=== PATIENT | female | born 1985 | race Asian ===

== ENCOUNTER → 2022-04-02 13:55 | Outpatient (CLI) | payer OTHER, SELFPAY ==
[2022-04-02 14:41] LABS: COVID19 -Nasal RAPID Negative (Negative)
== END ==
PROVIDERS: Visit Provider Registered Nurse
DX: Z20.822 Contact with and (suspected) exposure to COVID-19 (principal)
CPT/HCPCS: 87635

== ENCOUNTER 2022-11-17 20:53 | Emergency (ER) | payer OTHER, SELFPAY ==
[2022-11-17 21:19] VITALS: BP 153/77; PULSE 100; RESP 18; TEMP 37.8; O2SAT 96; BMI 38.4
[2022-11-17 22:35] LABS: Adenovirus Not Detected (Not Detect); B. parapertussis Not Detected (Not Detecte); Bordetella pertussis Not Detected (Not Detecte); Chlamydophila pneumoniae Not Detected (Not Detect); Coronavirus 229E Not Detected (Not Detect); Coronavirus HKU1 Not Detected (Not Detect); Coronavirus NL 63 Not Detected (Not Detect); Coronavirus OC43 Not Detected (Not Detect); Human Metapneumovirus Detected (Not Detect); Human Rhinovirus/Enterovirus Not Detected (Not Detect); Influenza A Not Detected (Not Detect); Influenza B Not Detected (Not Detect); Mycoplasma pneumoniae Not Detected (Not Detect); Parainfluenza Virus 1 Not Detected (Not Detect); Parainfluenza Virus 2 Not Detected (Not Detect); Parainfluenza Virus 3 Not Detected (Not Detect); Parainfluenza Virus 4 Not Detected (Not Detect); Respiratory Syncytial Virus Not Detected (Not Detect); SARS- CoV-2 Not Detected (Not Detecte)
--- NOTE | 2022-11-17 23:21 | ED_ITS ---
HPI - General Adult General Chief complaint: Fever Stated complaint: fever for 2 days Time Seen by Provider: 11/17/22 23:12 Source: patient Mode of arrival: Ambulatory History of Present Illness HPI narrative: Patient is 37-year-old female here for evaluation of a couple days of a fever. She states she also had diarrhea today. No abdominal pain. No urinary symptoms. No skin rashes. Has been taking Tylenol at home. No sinus congest ion or sore throat. Related Data Allergies Allergy/AdvReac Type Severity Reaction Status Date / Time amoxicillin AdvReac Mild Verified 04/02/22 13:55 cephalexin [From Keflex] AdvReac Mild Verified 04/02/22 13:55 Review of Systems Constitutional Constitutional: Reports system reviewed and no additional complaints, except as documented ENT Ears, Nose, Mouth, and Throat: Reports system reviewed and no additional complaints, except as documented Cardiovascular Cardiovascular: Reports system reviewed and no additional complaints, except as documented Integumentary/Breasts Skin/Breast: Reports system reviewed and no additional complaints, except as documented Neurologic Neurologic: Reports system reviewed and no additional complaints, except as documented Hematologic/Lymphatic On Anticoagulants: No Patient History Social History Smoking Status: Never smoker Smoking Status: Never smoker Substance Use Type: marijuana Exam Initial Vital Signs Initial Vital Signs: Vital Signs Temperature 100.1 F H 11/17/22 21:19 Pulse Rate 100 H 11/17/22 21:19 Respiratory Rate 18 11/17/22 21:19 Blood Pressure 153/77 H 11/17/22 21:19 Pulse Oximetry 96 11/17/22 21:19 Oxygen Delivery Method Room Air 11/17/22 21:19 HENMT Head: normal to inspection and normocephalic Ears: TM's normal bilaterally Resp Effort & Inspection: normal respiratory effort Auscultation: clear to auscultation bilaterally Cardio Rate: regular rate Rhythm: regular rhythm Skin General: no rashes or lesions noted Neuro General: patient alert, patient awake and moves all extremities Course Orders Ordered: ED Orders 11/17/22 21:25 Respiratory Panel (Film Array) Stat Vital Signs Vital signs: Vital Signs - 8 hr 11/17/22 23:30 Pulse Rate 86 Respiratory Rate 18 Blood Pressure 138/80 Pulse Oximetry 96 Oxygen Delivery Method Room Air Medical Decision Making Lab Data Lab results reviewed: Yes I reviewed the patient's lab results. Labs: Lab Results 11/17/22 Range/Units 21:25 Chlamy pneumoniae PCR Not detected (Not Detect) Adenovirus (PCR) Not detected (Not Detect) B. pertussis DNA (PCR) Not detected (Not Detecte) B.parapertussis DNA PCR Not detected (Not Detecte) Coronavirus OC43 (PCR) Not detected (Not Detect) Coronavirus HKU1 (PCR) Not detected (Not Detect) Coronavirus 229E (PCR) Not detected (Not Detect) SARS-CoV-2 (PCR) Not detected (Not Detecte) Coronavirus NL63 (PCR) Not detected (Not Detect) Human Metapneumovir PCR Detected H (Not Detect) Influenza Type A (PCR) Not detected (Not Detect) Influenza Type B (PCR) Not detected (Not Detect) M. pneumoniae (PCR) Not detected (Not Detect) Parainfluenza 1 (PCR) Not detected (Not Detect) Parainfluenza 2 (PCR) Not detected (Not Detect) Parainfluenza 3 (PCR) Not detected (Not Detect) Parainfluenza 4 (PCR) Not detected (Not Detect) RSV (PCR) Not detected (Not Detect) Entero/Rhino (PCR) Not detected (Not Detect) MDM Narrative Medical decision making narrative: Respiratory panel was positive for human metapneumovirus. This very well could be causing her symptoms today. No indication for antibiotics. No indication for further radiologic studies. Lungs are clear. Not tachypneic. Not hypoxic. Will discharge patient home. She was informed of the findings of the viral panel. Is given return precautions. She expressed understanding and agreement. Discharge Plan Departure Patient Disposition: Home Clinical Impression: Infection due to human metapneumovirus (hMPV) Instructions: Human Metapneumovirus Infection Activity Restrictions/Additional Instructions: You can take 600 mg of Motrin/ibuprofen every [id number] hours and or 1 extra- strength Tylenol every 4 hours as needed for fevers. Be sure that your increasing your fluid intake. Return to the emergency department for new or worsening symptoms. Stand Alone Forms: Patient Portal/API
[2022-11-17 23:30] VITALS: BP 138/80; PULSE 86; RESP 18; O2SAT 96
== END 2022-11-17 23:33 | disposition home or self-care (01) ==
PROVIDERS: Emergency Provider Emergency Medicine
DX: J06.9 Acute upper respiratory infection, unspecified (principal); B97.81 Human metapneumovirus as the cause of diseases classified elsewhere; Z20.822 Contact with and (suspected) exposure to COVID-19
CPT/HCPCS: 87633; 99281; 99282

== ENCOUNTER → 2022-11-27 09:45 | Outpatient (CLI) | payer OTHER, SELFPAY ==
--- NOTE | 2022-11-27 09:47 | DI.RAD.S_ITS ---
PROCEDURE: XR CHEST 2V INDICATIONS: persistent dry cough 12 days TECHNIQUE: 2 views of the chest were acquired. COMPARISON: None. FINDINGS: Surgical changes and devices: None. Lungs and pleura: Lungs are clear. No pleural effusions or pneumothorax. Mediastinum: Mediastinal contours are normal. Heart size is normal. Bones and chest wall: No suspicious bony abnormalities. Soft tissues appear unremarkable. IMPRESSION: No focal infiltrate, pleural effusion or pneumothorax. Dictated by: Jose Vegas M.D. on 11/27/2022 at 10:07 Approved by: Jose Vegas M.D. on 11/27/2022 at 10:09
== END ==
PROVIDERS: Referring Provider Student in an Organized Health Care Education/Training Program; Visit Provider Student in an Organized Health Care Education/Training Program
DX: R05.3 Chronic cough (principal)
CPT/HCPCS: 71046